=== PATIENT | female | born 1950 | race Caucasian/White ===

== ENCOUNTER 2018-06-07 11:30 | Inpatient (IN) | payer OTHER ==
[~2018-06-07] VITALS: Ht 152.4 cm; Wt 753.0 kg
[2018-06-08] MEDS ORDERED: CARAFATE1 GM PO (15:30)
[2018-06-08] MEDS ORDERED: COZAAR50 MG PO (15:31)
[2018-06-08] MEDS ORDERED: PREVACID30 M1 PO (15:31)
[2018-06-08] MEDS ORDERED: ZANTAC300 MG PO (15:31)
[2018-06-08] MEDS ORDERED: PREVA PO (15:31)
[2018-06-08] MEDS ORDERED: GLUCOPHAGE XR500 MG PO (15:32)
[2018-06-20] MEDS ORDERED: DOCUSATE SODIU100 MG PO (09:38)
[2018-06-20] MEDS ORDERED: GABAPENTIN800 MG PO (09:38)
[2018-06-20] MEDS ORDERED: AMOX-CLAV 875-1 EACH PO (09:39)
[2018-06-20] MEDS ORDERED: CLONAZEPAM1 MG PO (09:40)
[2018-06-20] MEDS ORDERED: PERCOCET 5-3251 EACH PO (09:40)
== END 2018-06-20 14:29 | disposition home or self-care (01) | DRG 455 ==
LOC: O/R 06-19 04:50 → PED 06-19 04:50 → O/R 06-19 10:54 → SURH 06-19 11:30 → PED 06-19 13:58
PROVIDERS: Orthopaedic Surgery Orthopaedic Surgery of the Spine
PROC: 0SG0071 Fusion of Lumbar Vertebral Joint with Autologous Tissue Substitute, Posterior Approach, Posterior Column, Open Approach (ICD-10-PCS; 2018-06-19)
PROC: 0ST20ZZ Resection of Lumbar Vertebral Disc, Open Approach (ICD-10-PCS; 2018-06-19)
PROC: 0SG00AJ Fusion of Lumbar Vertebral Joint with Interbody Fusion Device, Posterior Approach, Anterior Column, Open Approach (ICD-10-PCS; 2018-06-19)
PROC: 07DS3ZZ Extraction of Vertebral Bone Marrow, Percutaneous Approach (ICD-10-PCS; 2018-06-19)
PROC: 0SG00A0 Fusion of Lumbar Vertebral Joint with Interbody Fusion Device, Anterior Approach, Anterior Column, Open Approach (ICD-10-PCS; principal; 2018-06-19 12:30)
DX: M47.26 Other spondylosis with radiculopathy, lumbar region (principal); M48.061 Spinal stenosis, lumbar region without neurogenic claudication; M51.16 Intervertebral disc disorders with radiculopathy, lumbar region; E11.9 Type 2 diabetes mellitus without complications; I10 Essential (primary) hypertension